=== PATIENT | male | born 1955 | race Caucasian/White ===

== ENCOUNTER 2017-03-04 05:01 | Emergency (ER) | payer BC ==
[2017-03-04 05:11] VITALS: PULSE 58; RESP 18; TEMP 97.3
--- NOTE | 2017-03-04 06:07 | XR ---
EXAM: XR Left Ribs, 2 Views CLINICAL HISTORY: Reason: Pain TECHNIQUE: Frontal and oblique views of the left ribs. COMPARISON: No relevant prior studies available. FINDINGS: Lungs: Old granulomatous disease. Hyperinflated lungs. No consolidation. Pleural space: Unremarkable. No pneumothorax. Bones/joints: Unremarkable. No acute fracture. IMPRESSION: No radiographic evidence for acute left rib fractures. No pneumothorax. COPD changes.
--- NOTE | 2017-03-04 06:17 | ED ---
Chest Pain HPI - General Chief Complaint: Chest Pain Stated Complaint: rib pain Time Seen by Provider: 03/04/17 05:16 Source: patient Mode of arrival: ambulatory Limitations: no limitations - History of Present Illness Initial Comments: This patient is 62-year-old man who presents to be evaluated for what he believes is broken rib. The patient states that about 3-4 days ago he fell striking left side of his chest on the back of his truck. The patient states that initially the pain was not too bad but over the past couple of days pain is getting worse. He states that if he takes a deep breath or coughs or if he touches his left side the pain is worse. Patient has not noted any relieving factors. Describes pain as sharp, constant. Denies associated symptoms. MD Complaint: chest pain Onset/Timin -: days(s) Onset: other (After a fall) Pain Location: left chest Pain Radiation: none Severity: severe Quality: sharp Consistency: constant Improves With: nothing Worsens With: inspiration, palpation, movement Context: trauma/injury - Related Data Home Medications Medication Instructions Recorded Confirmed Albuterol Inhaler [Ventolin Hfa 1 - 2 puff INHALATION Q6HR PRN 03/04/17 03/04/17 Inhaler] Budesonide/Formoterol Fumarate 2 puff INHALATION BID 03/04/17 03/04/17 [Symbicort 160-4.5 Mcg Inhaler] Diltiazem HCl [Cartia Xt] 180 mg PO DAILY 03/04/17 03/04/17 Furosemide [Lasix] 40 mg PO BID 03/04/17 03/04/17 Lisinopril [Zestril] 20 mg PO DAILY 03/04/17 03/04/17 Theophylline Anhydrous 300 mg PO BID 03/04/17 03/04/17 [Theophylline] Tiotropium 18 Mcg/Puff [Spiriva] 1 cap INHALATION DAILY 03/04/17 03/04/17 Previous Rx's Medication Instructions Recorded Azithromycin [Zithromax Z-pack] 250 mg PO DIRECTED #6 tab 03/04/17 Hydrocodone/Acetaminophen [[place] 1 each PO Q6HR PRN #20 tab 03/04/17 5-325] Allergies Allergy/AdvReac Type Severity Reaction Status Date / Time No Known Allergies Allergy Verified 03/04/17 05:11 Review of Systems ROS Statement: Those systems with pertinent positive or pertinent negative responses have been documented in the HPI. ROS Other: All systems not noted in ROS Statement are negative. Constitutional: Denies: fever, chills Respiratory: Denies: cough, dyspnea Cardiovascular: Reports: as per HPI, chest pain. Denies: orthopnea, syncope Gastrointestinal: Denies: abdominal pain, vomiting, diarrhea Genitourinary: Denies: dysuria, hematuria Musculoskeletal: Denies: back pain Skin: Denies: rash Past Medical History Past Medical History: Atrial Fibrillation, COPD, Hypertension History of Any Multi-Drug Resistant Organisms: None Reported Additional Past Surgical History / Comment(s): plate in right ankle Past Psychological History: No Psychological Hx Reported Smoking Status: Current every day smoker Past Alcohol Use History: None Reported Past Drug Use History: None Reported General Exam Limitations: no limitations General appearance: alert, in no apparent distress Head exam: Present: atraumatic, normocephalic Eye exam: Present: normal appearance. Absent: scleral icterus, conjunctival injection Neck exam: Present: full ROM Respiratory exam: Present: normal lung sounds bilaterally, chest wall tenderness (Left midaxillary tenderness over ribs 5-8.). Absent: respiratory distress, wheezes, rales, rhonchi Cardiovascular Exam: Present: regular rate, normal rhythm, normal heart sounds. Absent: systolic murmur, diastolic murmur GI/Abdominal exam: Present: soft. Absent: tenderness, guarding, rebound, mass Extremities exam: Present: normal inspection, normal capillary refill. Absent: pedal edema, calf tenderness Back exam: Present: normal inspection. Absent: CVA tenderness (R), CVA tenderness (L), vertebral tenderness Neurological exam: Present: alert Skin exam: Present: warm, dry, intact, normal color. Absent: rash Course Vital Signs 03/04/17 03/04/17 05:05 06:31 Temperature 97.3 F L Pulse Rate 58 L 58 L Respiratory 18 18 Rate Blood Pressure 147/67 124/68 O2 Sat by Pulse 92 L 94 L Oximetry Disposition Clinical Impression: Chest wall injury Disposition: HOME SELF-CARE Condition: Fair Instructions: Chest Wall Pain (ED) Prescriptions: Azithromycin [Zithromax Z-pack] 250 mg PO DIRECTED #6 tab Hydrocodone/Acetaminophen [[place] 5-325] 1 each PO Q6HR PRN #20 tab PRN Reason: Pain Referrals: None,Stated [Primary Care Provider] - 1-2 days
[2017-03-04 06:32] VITALS: BP 124/68
== END 2017-03-04 06:32 | disposition home or self-care (01) ==
LOC: EC 05:01
DX: S29.9XXA Unspecified injury of thorax, initial encounter (principal); J44.9 Chronic obstructive pulmonary disease, unspecified; I10 Essential (primary) hypertension; I48.91 Unspecified atrial fibrillation; F17.200 Nicotine dependence, unspecified, uncomplicated; Z79.51 Long term (current) use of inhaled steroids; Z79.899 Other long term (current) drug therapy; W19.XXXA Unspecified fall, initial encounter
CPT/HCPCS: 99283

== ENCOUNTER 2019-10-05 21:43 | Emergency (ER) | payer MEDICARE ==
[2019-10-05 21:48] VITALS: RESP 18; TEMP 97.8
[2019-10-05] MEDS ORDERED: MORPHINE SULFATE 4 MG/ML SYRINGE IV STA (22:31)
[2019-10-05] MEDS ORDERED: SODIUM CHLORIDE 0.9% 1,000 ML IV STA (22:31)
--- NOTE | 2019-10-05 22:34 | ED ---
General Adult HPI - General Chief complaint: Back Pain/Injury Stated complaint: back pain Time Seen by Provider: 10/05/19 21:55 Source: patient Mode of arrival: wheelchair Limitations: no limitations - History of Present Illness Initial comments: Patient is 64-year-old male presenting to emergency Department with a chief complaint of flank pain. Patient reports sudden onset of left leg pain started about one hour prior to arrival. Patient states pain is located in the left lumbar region and radiates to the left flank. There is reporting radiation of pain to the groin. States the pain is exacerbated with ambulation left and right rotation. Doesn't report any obstructive urinary symptoms. Denies hematuria, hematochezia or melena. Denies increased urgency frequency dysuria. Denies any history of kidney stones. Denies any nausea or vomiting or diarrhea. Denies taking any medication to alleviate the symptoms. Denies any abdominal pain, chest pain or shortness of breath. Patient has history of COPD and uses 4 L of nasal cannula at home. - Related Data Home Medications Medication Instructions Recorded Confirmed Albuterol Inhaler [Ventolin Hfa 1 - 2 puff INHALATION Q6HR PRN 03/04/17 03/04/17 Inhaler] Budesonide/Formoterol Fumarate 2 puff INHALATION BID 03/04/17 03/04/17 [Symbicort 160-4.5 Mcg Inhaler] Diltiazem HCl [Cartia Xt] 180 mg PO DAILY 03/04/17 03/04/17 Furosemide [Lasix] 40 mg PO BID 03/04/17 03/04/17 Lisinopril [Zestril] 20 mg PO DAILY 03/04/17 03/04/17 Theophylline Anhydrous 300 mg PO BID 03/04/17 03/04/17 [Theophylline] Tiotropium 18 Mcg/Puff [Spiriva] 1 cap INHALATION DAILY 03/04/17 03/04/17 Previous Rx's Medication Instructions Recorded Azithromycin [Zithromax Z-pack] 250 mg PO DIRECTED #6 tab 03/04/17 Hydrocodone/Acetaminophen [[place] 1 each PO Q6HR PRN #20 tab 03/04/17 5-325] Hydrocodone/Acetaminophen [[place] 1 tab PO Q8HR PRN #12 tab 10/05/19 5-325] Tamsulosin [Flomax] 0.4 mg PO DAILY #7 cap 10/05/19 Allergies Allergy/AdvReac Type Severity Reaction Status Date / Time No Known Allergies Allergy Verified 10/05/19 21:49 Review of Systems ROS Statement: Those systems with pertinent positive or pertinent negative responses have been documented in the HPI. ROS Other: All systems not noted in ROS Statement are negative. Past Medical History Past Medical History: Atrial Fibrillation, COPD, Hypertension History of Any Multi-Drug Resistant Organisms: None Reported Additional Past Surgical History / Comment(s): plate in right ankle Past Psychological History: No Psychological Hx Reported Smoking Status: Current every day smoker Past Alcohol Use History: None Reported Past Drug Use History: None Reported General Exam Limitations: no limitations General appearance: alert, in no apparent distress Head exam: Present: atraumatic, normocephalic, normal inspection Eye exam: Present: normal appearance Pupils: Present: normal accommodation ENT exam: Present: normal exam Neck exam: Present: normal inspection, full ROM Respiratory exam: Present: normal lung sounds bilaterally Cardiovascular Exam: Present: regular rate, normal rhythm GI/Abdominal exam: Present: soft. Absent: distended, tenderness, guarding Back exam: Present: normal inspection, full ROM, CVA tenderness (L) Neurological exam: Present: alert, oriented X3 Psychiatric exam: Present: normal affect, normal mood Skin exam: Present: warm, dry, intact, normal color Course Vital Signs 10/05/19 21:44 Temperature 97.8 F Pulse Rate 75 Respiratory 18 Rate Blood Pressure 155/68 O2 Sat by Pulse 88 L Oximetry Medical Decision Making - Medical Decision Making Patient is 64-year-old male presenting to the emergency department with a chief complaint of left flank pain. This was sudden onset of pain with no nausea or vomiting. On exam patient does have left CVA tenderness. No abdominal pain. UA does show hematuria but no signs of infection. CBC does indicate leukocytosis of 14.7k. Patient does appear to be slightly anemic. CT of abdomen and pelvis with no contrast shows an obstructing renal stone at the left UVJ with hydroureter and hydronephrosis. I suspect this is the cause for the elevated BUN. CT did also revealed a mild abdominal aneurysm. Patient given analgesia and fluids in the ED. Patient was discharged with Flomax and [place] for less than 3 days. Patient advised to follow-up with urology. Return parameters were thoroughly discussed with patient was understanding and agreeable. Case discussed with physician. - Lab Data Result diagrams: 10/05/19 22:45 10/05/19 22:45 Lab Results 10/05/19 10/05/19 10/05/19 Range/Units 22:45 22:45 22:45 WBC 14.5 H (3.8-10.6) k/uL RBC 4.32 (4.30-5.90) m/uL Hgb 12.1 L (13.0-17.5) gm/dL Hct 39.0 (39.0-53.0) % MCV 90.2 (80.0-100.0) fL MCH 27.9 (25.0-35.0) pg MCHC 30.9 L (31.0-37.0) g/dL RDW 16.1 H (11.5-15.5) % Plt Count 180 (150-450) k/uL Neutrophils % 81 % Lymphocytes % 13 % Monocytes % 4 % Eosinophils % 0 % Basophils % 0 % Neutrophils # 11.8 H (1.3-7.7) k/uL Lymphocytes # 1.8 (1.0-4.8) k/uL Monocytes # 0.6 (0-1.0) k/uL Eosinophils # 0.1 (0-0.7) k/uL Basophils # 0.0 (0-0.2) k/uL Hypochromasia Slight Anisocytosis Slight Sodium 139 (137-145) mmol/L Potassium 4.0 (3.5-5.1) mmol/L Chloride 108 H (98-107) mmol/L Carbon Dioxide 28 (22-30) mmol/L Anion Gap 3 mmol/L BUN 42 H (9-20) mg/dL Creatinine 0.83 (0.66-1.25) mg/dL Est GFR (CKD-EPI)AfAm >90 (>60 ml/min/1.73 sqM) Est GFR (CKD-EPI)NonAf >90 (>60 ml/min/1.73 sqM) Glucose 109 H (74-99) mg/dL Calcium 8.7 (8.4-10.2) mg/dL Total Bilirubin 0.2 (0.2-1.3) mg/dL AST 21 (17-59) U/L ALT 40 (4-49) U/L Alkaline Phosphatase 78 (38-126) U/L Total Protein 4.9 L (6.3-8.2) g/dL Albumin 2.7 L (3.5-5.0) g/dL Urine Color Yellow Urine Appearance Clear (Clear) Urine pH 5.5 (5.0-8.0) Ur Specific [place] 1.015 (1.001-1.035) Urine Protein 1+ H (Negative) Urine Glucose (UA) Negative (Negative) Urine Ketones Negative (Negative) Urine Blood Moderate H (Negative) Urine Nitrite Negative (Negative) Urine Bilirubin Negative (Negative) Urine Urobilinogen <2.0 (<2.0) mg/dL Ur Leukocyte Esterase Negative (Negative) Urine RBC 30 H (0-5) /hpf Urine WBC 1 (0-5) /hpf Hyaline Casts 1 (0-2) /lpf Urine Mucus Rare H (None) /hpf Disposition Clinical Impression: Renal calculus, left, Flank pain, acute Disposition: HOME SELF-CARE Condition: Good Instructions (If sedation given, give patient instructions): Kidney Stones (ED) Additional Instructions: Take prescribed medication as directed. Follow-up with urology. Return to emergency department if symptoms worsen. Prescriptions: Tamsulosin [Flomax] 0.4 mg PO DAILY #7 cap Hydrocodone/Acetaminophen [[place] 5-325] 1 tab PO Q8HR PRN #12 tab PRN Reason: Pain Is patient prescribed a controlled substance at d/c from ED?: Yes If prescribed controlled substance>3 days was MAPS reviewed?: Prescribed <3 Days Referrals: Sudhir Whitehead MD [Primary Care Provider] - 1-2 days Marco Adair MD [STAFF PHYSICIAN] - 1-2 days Time of Disposition: 00:04
[2019-10-05 23:03] LABS: Anisocytosis Slight; Basophils % (A) 0 %; Eosinophils # (A) 0.1 k/uL (0-0.7); Eosinophils % (A) 0 %; HGB 12.1 gm/dL (13.0-17.5); Hypochromasia Slight; Lymphocytes # (A) 1.8 k/uL (1.0-4.8); Lymphocytes % (A) 13 %; MCH 27.9 pg (25.0-35.0); MCHC 30.9 g/dL (31.0-37.0); MCV 90.2 fL (80.0-100.0); Mean Platelet Volume 9.1; Monocytes # (A) 0.6 k/uL (0-1.0); Monocytes % (A) 4 %; Neutrophils # (A) 11.8 k/uL (1.3-7.7); Neutrophils % (A) 81 %; Platelet Count 180 k/uL (150-450); RBC 4.32 m/uL (4.30-5.90); RDW 16.1 % (11.5-15.5); WBC 14.5 k/uL (3.8-10.6)
[2019-10-05 23:12] LABS: Appearance,Urine Clear (Clear); Bilirubin,Urine Negative (Negative); Blood,Urine Moderate (Negative); Color,Urine Yellow; Glucose,Urine (UA) Negative (Negative); Hyaline Casts,Urine 1 /lpf (0-2); Ketones,Urine Negative (Negative); Leukocyte Esterase,Urine Negative (Negative); Mucus,Urine Rare /hpf; Nitrite,Urine Negative (Negative); PH, Urine 5.5 (5.0-8.0); Protein,Urine 1+ (Negative); RBC,Urine 30 /hpf (0-5); Specific Gravity,Urine 1.015 (1.001-1.035); Urobilinogen,Urine <2.0 mg/dL (<2.0); WBC,Urine 1 /hpf (0-5)
[2019-10-05 23:15] LABS: ALT 40 U/L (4-49); AST 21 U/L (17-59); African American GFR (CKD) >90 (>60 ml/min/1.73 sqM); Albumin 2.7 g/dL (3.5-5.0); Alkaline Phosphatase 78 U/L (38-126); Anion Gap 3 mmol/L; Blood Urea Nitrogen 42 mg/dL (9-20); Calcium 8.7 mg/dL (8.4-10.2); Carbon Dioxide 28 mmol/L (22-30); Chloride 108 mmol/L (98-107); Glucose 109 mg/dL (74-99); Non-African American GFR(CKD) >90 (>60 ml/min/1.73 sqM); Sodium 139 mmol/L (137-145); Total Bilirubin 0.2 mg/dL (0.2-1.3); Total Protein 4.9 g/dL (6.3-8.2)
--- NOTE | 2019-10-05 23:46 | CT ---
EXAMINATION TYPE: CT abdomen pelvis wo con DATE OF EXAM: 10/05/2019 COMPARISON: None HISTORY: left flank pain CT DLP: 573.8 mGycm Automated exposure control for dose reduction was used. Multiple axial sections were obtained from the diaphragm to the floor the pelvis with no contrast. There is coarse interstitial density at the left lung base with some pleural thickening and mild infi ltrate and atelectasis. There is no pleural effusion. Heart appears normal. Liver spleen stomach pancreas gallbladder appear intact. Bile ducts are not dilated. There is left-sided hydronephrosis and perinephric edema. There is 5 mm calculus at the left ureteral vesicle junction. The right kidney has normal size and contour. There is no retroperitoneal adenopat hy. Abdominal aorta is atheromatous. There is 3.5 cm aneurysm of the lower abdominal aorta. There are multiple sigmoid diverticula. There is no sign of diverticulitis. There is no evidence of t hickened appendix. Appendix is partly filled with air and appears normal. Appendix is medial. Bladder distends smoothly. There is no inguinal hernia. Lumbar vertebra have normal alignment. Posterior elements are intact. Disc spaces are normal. There i s no compression fracture. The bony pelvis appears intact. There is facet arthropathy lower lumbar sp ine and relative spinal stenosis at L3-4. IMPRESSION: Obstructing calculus at the left ureterovesical junction with left-sided hydronephrosis and hydrouret er. Moderate colonic diverticulosis. Mild lower abdominal aortic aneurysm. Mild spinal stenosis at L3-4.
[2019-10-06 01:02] VITALS: BP 133/69; PULSE 79
== END 2019-10-06 00:20 | disposition home or self-care (01) ==
LOC: EC 21:43
DX: N13.2 Hydronephrosis with renal and ureteral calculous obstruction (principal); D72.829 Elevated white blood cell count, unspecified; D64.9 Anemia, unspecified; I71.4 Abdominal aortic aneurysm, without rupture; M79.605 Pain in left leg; I48.91 Unspecified atrial fibrillation; J44.9 Chronic obstructive pulmonary disease, unspecified; I10 Essential (primary) hypertension; F17.200 Nicotine dependence, unspecified, uncomplicated; Z79.51 Long term (current) use of inhaled steroids; Z79.899 Other long term (current) drug therapy
CPT/HCPCS: 99284; 96374; 96361; 36415; 80053; 85025; 81001; 74176; J2270